=== PATIENT | female | born 1945 | race Caucasian/White ===

== ENCOUNTER 2017-05-24 09:55 | Outpatient (RCR) | payer MEDICARE, OTHER ==
[~2017-05-24 09:55] MED LIST: ASPIR 8181 MG PO; CLEOCIN HCL150 MG PO; LISINOPRIL10 MG PO; METFORMIN HCL500 MG PO; METOPROLOL TART25 MG PO; PAXIL10 MG PO
== END 2017-06-17 ==
LOC: WCC 09:55
PROVIDERS: ATTEND Family Medicine Adult Medicine
DX: E11.59 Type 2 diabetes mellitus with other circulatory complications (principal); I87.393 Chronic venous hypertension (idiopathic) with other complications of bilateral lower extremity; L03.115 Cellulitis of right lower limb; M79.604 Pain in right leg; I87.2 Venous insufficiency (chronic) (peripheral); I10 Essential (primary) hypertension; D50.8 Other iron deficiency anemias; E78.2 Mixed hyperlipidemia; W01.198A Fall on same level from slipping, tripping and stumbling with subsequent striking against other object, initial encounter
CPT/HCPCS: 36415; 82948